=== PATIENT | female | born 1940 | race Caucasian/White ===

== ENCOUNTER 2017-12-24 07:42 | Inpatient (IN) ==
--- NOTE | 2017-12-23 16:06 | Discharge Summary ---
<Emily Troy E - Last Filed: 12/23/17 16:03> Date of Encounter: 12/23/17 - Discharge Diagnosis (1) Osteoarthritis of left knee Priority: Primary Status: Chronic Qualifiers: Osteoarthritis type: unspecified Qualified Code(s): M17.12 - Unilateral primary osteoarthritis, left knee (2) Diabetes mellitus Priority: Secondary Status: Chronic Qualifiers: Diabetes mellitus type: type 2 Diabetes mellitus complication status: without complication Diabetes mellitus superintendent marine oil terminal insulin use: without chcf use Qualified Code(s): E11.9 - Type 2 diabetes mellitus without complications (3) Hypothyroidism Priority: Secondary Status: Chronic Qualifiers: Hypothyroidism type: unspecified Qualified Code(s): E03.9 - Hypothyroidism , unspecified (4) Anxiety Priority: Secondary Status: Chronic (5) Insomnia Priority: Secondary Status: Chronic Qualifiers: Insomnia type: unspecified Qualified Code(s): G47.00 - Insomnia, unspecified (6) HLD (hyperlipidemia) Priority: Secondary Status: Chronic Qualifiers: Hyperlipidemia type: unspecified Qualified Code(s): E78.5 - Hyperlipidemia , unspecified (7) Fibromyalgia Priority: Secondary Status: Chronic - Discharge Medications Home Medications: Diazepam [Valium] 5 mg PO BID PRN 07/13/15 [History] TraMADol [Ultram] 50 mg PO Q6HR PRN 07/13/15 [History] Amitriptyline [Elavil] 25 mg PO HS PRN 03/13/17 [History] Citalopram Hydrobromide [Celexa] 40 mg PO DAILY 03/13/17 [History] Lidocaine Patch [Lidoderm 5% patch] 1 each TP DAILY PRN 03/13/17 [History] Aspirin Enteric Coated [Aspirin EC] 325 mg PO DAILY 21 Days #21 tablet. [Rx] OxyCODONE Immed Rel [Roxicodone 5 MG] 5 mg PO Q6HR PRN 7 Days #28 tablet [Rx] Ropinirole HCl [Requip] 2 mg PO HS 12/24/17 [History] Allergies/Adverse Reactions: 3 Allergy/AdvReac Type Severity Reaction Status Date / Time venom-honey bee Allergy Severe Anaphylaxis Verified 12/24/17 08:50 [bee venom (honey bee)] Tizanidine [From Zanaflex] AdvReac Severe Confusion Verified 12/24/17 08:50 Primary care physician: Darcy Saavedra - Patient Status Disposition: Home, Self-Care Condition: Good - Discharge Instructions Follow Up With: Julio Heath DO [Primary Care Provider] - - Hospital Course Hospital course: Ms. Rivera is a 77 year old female - Time Spent with Patient Total time spent providing and/or coordinating discharge services: <RaulBob - Last Filed: 12/25/17 07:52> Date of Encounter: 12/25/17 Time of Encounter: 07:51 - Discharge Diagnosis (1) Obesity (BMI 30.0-34.9) Priority: Secondary Status: Chronic (2) Status post total left knee replacement Priority: Primary Status: Acute (3) Osteoarthritis of left knee Priority: Primary Status: Chronic Qualifiers: Osteoarthritis type: unspecified Qualified Code(s): M17.12 - Unilateral primary osteoarthritis, left knee (4) Diabetes mellitus Priority: Secondary Status: Chronic Qualifiers: Diabetes mellitus type: type 2 Diabetes mellitus complication status: without complication Diabetes mellitus superintendent marine oil terminal insulin use: without chcf use Qualified Code(s): E11.9 - Type 2 diabetes mellitus without complications (5) Hypothyroidism Priority: Secondary Status: Chronic Qualifiers: Hypothyroidism type: unspecified Qualified Code(s): E03.9 - Hypothyroidism , unspecified (6) Anxiety Priority: Secondary Status: Chronic (7) Insomnia Priority: Secondary Status: Chronic Qualifiers: Insomnia type: unspecified Qualified Code(s): G47.00 - Insomnia, unspecified (8) HLD (hyperlipidemia) Priority: Secondary Status: Chronic Qualifiers: Hyperlipidemia type: unspecified Qualified Code(s): E78.5 - Hyperlipidemia , unspecified (9) Fibromyalgia Priority: Secondary Status: Chronic (10) Acute blood loss anemia Priority: Primary Status: Acute Primary care physician: Darcy Saavedra - Patient Status Functional capacity at discharge: independent ambulation Overall status at discharge: patient is progressing back to baseline - Hospital Course Hospital course: Ms. Rivera is a 77 year old female Status post right total shoulder replacement reverse The patient had an uneventful postoperative course. They received antibiotics and physical therapy and were discharged in stable condition. There will follow -up in the office in 2 weeks. - Time Spent with Patient Total time spent providing and/or coordinating discharge services:
[~2017-12-24 07:42] MED LIST: Povidone-Iodine 5% 60 ML, Sodium Chloride IRRigation 500 ML IR ONE
[2017-12-24] MEDS ORDERED: CeFAZolin Syr 2,000MG/20 ML 2,000 MG/20 ML SYRINGE IVPB ONE (08:13)
[2017-12-24] MEDS ORDERED: Ringers Solution, Lactated 1,000 ML IVC SCH ×2 (08:15→12:25)
--- NOTE | 2017-12-24 08:15 | Anesthesia Evaluation PreOp ---
Date of Encounter: 12/24/17 Time of Encounter: 08:13 - Past History Planned Operation: Left Total Knee Replacement Cardiac History: HTN, Hyperlipidemia Pulmonary History: Denies Any Significant HX PALLET SORTER History: Other (Anxiety) Other Medical History: Diabetes Type II, Thyroid (Hypothyroid), Other ( Fibromyalgia, Obesity) Anesthesia History: No Prior Anesthetic Complications, Past Anesthesia (JOAN-BSO , Tubal, laparoscopy,bladder lift, hammertoe) : No Alcohol Use: none Drug use: none Medications and Allergies Diazepam [Valium] 5 mg PO BID PRN 07/13/15 [History] Ropinirole HCl [Requip] 1 mg PO HS 07/13/15 [History] TraMADol [Ultram] 50 mg PO Q6HR PRN 07/13/15 [History] Amitriptyline [Elavil] 25 mg PO HS PRN 03/13/17 [History] Citalopram Hydrobromide [Celexa] 40 mg PO DAILY 03/13/17 [History] Lidocaine Patch [Lidoderm 5% patch] 1 each TP DAILY PRN 03/13/17 [History] OxyCODONE/APAP 5/325 [Percocet 5/325 MG] 1 each PO Q6HR PRN #28 tablet 03/13/17 [Rx] Promethazine HCl 12.5 mg PO Q4-6H PRN #28 tablet 03/13/17 [Rx] Aspirin Enteric Coated [Aspirin EC] 325 mg PO DAILY 21 Days #21 tablet. [Rx] OxyCODONE Immed Rel [Roxicodone 5 MG] 5 mg PO Q6HR PRN 7 Days #28 tablet [Rx] 3 Allergy/AdvReac Type Severity Reaction Status Date / Time venom-honey bee Allergy Severe Anaphylaxis Verified 07/13/15 10:57 [bee venom (honey bee)] Tizanidine [From Zanaflex] AdvReac Severe Confusion Verified 03/13/17 09:03 - Meds/Allergy Pre-op Review Medications Reviewed: Yes Allergies Reviewed: Yes Beta Blockers on Current Med List: No Anesthesia Results - Labs Laboratory Tests 12/23/17 12/23/17 12/23/17 10:29 10:29 10:29 WBC 8.0 Hgb 12.4 Hct 40.4 Plt Count 473 H INR 1.1 Sodium 143 Potassium 3.9 Chloride 106 Carbon Dioxide 30 H BUN 10 Creatinine 0.70 - Imaging EKG: report reviewed (SR) Anesthesia Exam O2 Sat Height 1.6 m Height 1.6 m Weight 77.564 kg Weight 77.564 kg O2 Sat by Pulse Oximetry 97 Vital Signs Temp Pulse Resp BP Pulse Ox 98.2 F 109 18 110/63 97 12/24/17 08:08 12/24/17 08:08 12/24/17 08:08 12/24/17 08:08 12/24/17 08:08 Height: 5'3'' Weight: 171# NPO (# of Hours): > 8 hrs Pain Scale: 0 Pain Scale Used: Numeric (1 - 10) - HEENT Pupil (Motor): Pupils equal, EOMI Mallampati: II Teeth: Missing Denture Type: Upper: Complete Oral Opening: Greater than 3 - PALLET SORTER LOC: Oriented PALLET SORTER Motor: Normal RUE, Normal LUE, Normal RLE, Normal LLE, Normal Face PALLET SORTER Sensory: Normal: RUE, LUE, RLE, LLE, Face - Cardiac Rhythm: Regular Murmur: None JVD: No Carotid Bruit: No - Pulmonary Breath Sounds: bilateral Clear Respiratory Effort: Symmetrical Anesthesia Assess/Plan ASA Score: 3 Modified Val Scale for Level of Consciousness: Cooperative, oriented, and tranquil Anesthetic Plan: General, Regional (Left Fem. Nerve Block.) Autologous Blood: Yes Monitoring Plan: Standard Monitors Recovery Plan: PACU
[2017-12-24] MEDS ORDERED: Lidocaine -MPF 2% 2 ML VIAL ONE (09:00)
[2017-12-24] MEDS ORDERED: Dexamethasone 4 MG/ML VIAL ONE (09:00)
[2017-12-24] MEDS ORDERED: *HR* Midazolam HCl 2 MG/2 ML VIAL ONE (09:00)
[2017-12-24] MEDS ORDERED: *HR* FentaNYL (PF) 100 MCG/2 ML VIAL ONE (09:00)
[2017-12-24] MEDS ORDERED: Ondansetron 4 MG/2 ML VIAL ONE (09:00)
[2017-12-24] MEDS ORDERED: *HR* Propofol 200 MG/20 ML VIAL IVP ONE (09:01)
--- NOTE | 2017-12-24 09:02 | History & Physical Report ---
Date of Encounter: 12/24/17 Time of Encounter: 09:02 24 Hour HP Update - Instructions Instructions: If the History and Physical is less than 30 days old and was completed prior to A.M. admission and or procedure and has NOT been updated on calendar day of procedure please complete this update prior to performing procedure. - Update Patient reports changes in Medical Condition: No Changes in examination, assessment, or condition: No Changes in Medication: No Preop tests/diagnostics Reviewed: Yes Surgery Remains Indicated: Yes Consent for Planned Operative Procedure(s) Verified: Yes - Pre-Operative Checklist Preoperative Checklist Indicated: No Prophylactic Antibiotic Ordered: Yes Is VTE Prophylaxis Indicated?: Yes
[2017-12-24] MEDS ORDERED: ROPIVACAINE HCL/PF 0.5% 30 ML VIAL ONE (09:40)
[2017-12-24] MEDS ORDERED: Bupivacaine/Clonidine Syringe 1 EACH SYRINGE ONE (09:40)
[2017-12-24] MEDS ORDERED: Ethanol\\Acetic Acid\\Na Ace\\Ben 1,000 ML IRRIG.SOLN IR ONE (09:42)
[2017-12-24] MEDS ORDERED: Acetaminophen IV 1,000 MG/100 ML INFUS..BTL ONE (10:22)
[2017-12-24] MEDS ORDERED: Ondansetron 4 MG/2 ML VIAL IVP ONE (10:29)
--- NOTE | 2017-12-24 10:34 | Anesthesia Procedures ---
Date of Encounter: 12/24/17 Time of Encounter: 09:45 Procedures: Anesthesia - Nerve Block Procedure Date: 12/24/17 Time: 09:45 Allergies/Adv Reactions: Tizanidine Pre-op Diagnosis: Left knee arthritis Surgical Procedure: Left TKA Checklist: Correct Patient Identifier, Correct procedure, History checked Correct side: Left Blood Thinner: No Monitor Applied: EKG, BP, Pulse Oximetry Supplemental Oxygen via Nasal Cannula (L/min): 2 Sedation: Versed (mg): 2 Sedation: Fentanyl (mcg): 100 Indication: Post Op Analgesia Pre-op Neuro Deficits: No Block Type: Femoral, Other (Ipac) Catheter placed: No Sterile Technique: Yes Ultrasound used: Yes Anatomy identified: Yes Visual spread of Local: Yes Neuro Stimulation: No Blood on Needle Aspiration: No Smooth Injection of Local: Yes Pain with Injection of Local: No Prep: Chlorhexadine Needle: 22 x 50 mm Stimuplex, 21 x 100 mm Stimuplex Local: 0.25% Bupivicaine w/Clonidine 20 mcg/cc (20ml), Ropivacaine (0.5% 30ml) Volume (cc): 50 Number of Attempts: 1 Complications: None/effective block Vitals: Vital Signs Temperature 98.2 F 12/24/17 08:08 Pulse Rate 109 12/24/17 08:08 Respiratory Rate 18 12/24/17 08:08 Blood Pressure 110/63 12/24/17 08:08 O2 Sat by Pulse Oximetry 97 12/24/17 08:08 Temperature 98.2 F 12/24/17 08:18 Pulse Rate 104 12/24/17 09:55 Respiratory Rate 18 12/24/17 09:55 Blood Pressure 103/57 12/24/17 09:55 O2 Sat by Pulse Oximetry 98 12/24/17 09:55
--- NOTE | 2017-12-24 10:46 | Orthopedic Operative Note ---
Date of procedure: 12/24/17 Pre-op diagnosis: Left knee arthritis Post-op diagnosis: same Procedure: Procedure: Left Total knee replacement Estimated blood loss: 300 cc Hardware: Metal and polyethylene replacement. Arthrex Femur: 3 Tibia: 4 PS insert:16 Patella:37 Exam Under anesthesia: Loss of full extension and 30 degrees full flexion and no instability Procedural Notes: Grade 4 arthritic changes all 3 compartments Operative procedure: The patient was brought to the operating room and placed on the operating room table. After general anesthesia was administered the operative knee was examined. Findings were noted in the exam under anesthesia. The operative extremity was prepped and draped in sterile surgical fashion. The patient received IV antibiotics prior to skin incision. A standard midline incision was made centered over the patella. The incision was made through the skin and subcutaneous tissue. A medial parapatellar tendon approach was performed. Care was taken to preserve tissue along the medial aspect of the patella. And to protect the patella tendon. The deep MCL was released off the medial tibia. The infra patella fat pad was excised. Knee was brought into flexion. Patient noted to have grade 4 arthritic changes all 3 compartments. The entry hole was made for the intramedullary femoral guide. The guide was seated in 6 degrees of valgus. Anterior cut was made followed by the distal cut. The ACL the PCL the medial and the lateral menisci were excised. The tibia was subluxed forward. The entry hole was made for the intramedullary tibial guide. Guide was seated to resect 2 mm off the more abnormal side. The knee was brought into flexion the distal femur was sized to a 3. The femoral guide was seated, the anterior cut was made followed by the posterior condylar cut, followed by the chamfer cuts. The finishing guide was seated the box cut was made and the lug holes were drilled. The tibia was sized to a 4, the tibial tray was seated and prepared with the large drill followed by the fin cutter. Trial reduction revealed full extension no varus valgus instability with the appropriate PS 16 Lianet. The patella was everted and cut was made at the level of the insertion of the quadriceps and patella tendon. The patella was sized to a 37 the guide was seated and the lug holes are drilled. Trial reduction revealed excellent patella tracking. All trial components were removed all bony surfaces were irrigated. The tibia was cemented first followed by the femur. The 16 PS Lianet was seated and the knee was brought into full extension. The patella was cemented and held in place with the patellar holding clamp. After the cement had hardened, the knee sat for 2 minutes with a Betadine saline solution. The PA closed the knee. The knee was then irrigated out with 2 L of pulse irrigation. The extensor mechanism was closed with #2 FiberWire suture and #2 PDS suture. The subcutaneous tissue was then irrigated and closed deep with #1 PDS suture superficially with 0 PDS suture and skin was closed with skin freddie. The patient was then placed in a sterile dressing and a postoperative brace extubated and transferred to recovery room in stable condition. Anesthesia: GETA Surgeon: Bob Carter Was there an assistant restaurant general manager present: Yes Lye Treater: Emily Troy Estimated blood loss (cc): 300 Condition: stable Disposition: PACU
[2017-12-24] MEDS: Ringers Solution, Lactated 1,000 ML IVC SCH ×2 (10:57→10:59)
[2017-12-24] MEDS: *HR* HYDROmorphone (PF) 1 MG/ML SYRINGE IVP PRN ×2 (11:29→11:34)
[2017-12-24 11:44] LABS: Hematocrit 30.9 % (35.3-44.9)
[2017-12-24 11:45] LABS: Hemoglobin 9.5 g/dL (11.5-15.4)
--- NOTE | 2017-12-24 12:03 | Anesthesia Evaluation Post Op ---
Date of Encounter: 12/24/17 Time of Encounter: 12:03 - Vital Signs Vital Signs: Vital Signs/O2 Sat, Most Current Temp Pulse Resp BP Pulse Ox 98.3 F 87 16 98/55 92 12/24/17 11:51 12/24/17 11:51 12/24/17 11:51 12/24/17 11:51 12/24/17 11:51 - Lungs Lungs: Clear Ascult./Percussion - Airway Airway: Non-obstructed - Cardiovascular Regular Rate - Mental Status Mental Status: Alert & Oriented, Answers Appropriately - Pain Pain Scale: 0 Pain Scale used: Numeric (1 - 10) - Nausea Vomiting Nausea Vomiting: Not Present - Hydration Hydration: Ice chips, Has not voided - Discharge PostOp Status: Transfer Patient to floor
[2017-12-24] MEDS ORDERED: Naloxone 0.4 MG/ML INJ IVP PRN (12:25)
[2017-12-24] MEDS ORDERED: Dextrose Gel 15 GM/37.5 ML TUBE PO PRN ×2 (12:25)
[2017-12-24] MEDS ORDERED: D5% in Water 1,000 ML IVC PRN (12:25)
[2017-12-24] MEDS ORDERED: *HR* OxyCODONE Immed Rel 5 MG TABLET PO PRN (12:25)
[2017-12-24] MEDS ORDERED: diazePAM 5 MG TABLET PO PRN (12:25)
[2017-12-24] MEDS ORDERED: Sennosides 8.6 MG TABLET PO PRN (12:25)
[2017-12-24] MEDS ORDERED: *HR* Dextrose 50 % in Water (Syg) 50 ML SYRINGE IVP PRN (12:25)
[2017-12-24] MEDS ORDERED: Ondansetron 4 MG/2 ML VIAL IVP PRN (12:25)
[2017-12-24] MEDS ORDERED: MOM Conc 10 ML UD.LIQ PO PRN (12:25)
[2017-12-24] MEDS ORDERED: Temazepam 15 MG CAPSULE PO PRN (12:25)
[2017-12-24] MEDS: Insulin LISPRO 300 UNITS/3 ML VIAL SQ SCH ×3 (13:05→20:54)
[2017-12-24] MEDS: *HR* OxyCODONE Immed Rel 5 MG TABLET PO PRN ×3 (13:15→23:09)
[2017-12-24] MEDS: CeFAZolin Premix DUPLEX 2,000 MG/50 ML BAG IVPB SCH (17:28)
[2017-12-24] MEDS: *HR* Enoxaparin 30 MG/0.3 ML SYRINGE SQ SCH (17:29)
[2017-12-24] MEDS ORDERED: *HR* Enoxaparin 30 MG/0.3 ML SYRINGE SQ SCH (18:00)
[2017-12-24] MEDS: rOPINIRole 1 MG TABLET PO SCH (20:49)
[2017-12-25] MEDS: CeFAZolin Premix DUPLEX 2,000 MG/50 ML BAG IVPB SCH (00:49)
[2017-12-25] MEDS: *HR* HYDROmorphone (PF) 1 MG/ML SYRINGE IVP PRN ×3 (04:20→15:51)
[2017-12-25] MEDS: *HR* Enoxaparin 30 MG/0.3 ML SYRINGE SQ SCH ×2 (04:46→17:44)
[2017-12-25] MEDS ORDERED: *HR* HYDROcodone/Acet 5/325 mg TABLET PO PRN (05:53)
[2017-12-25] MEDS: *HR* HYDROcodone/Acet 10/325 mg TABLET PO PRN ×3 (06:10→20:27)
[2017-12-25 06:28] LABS: BUN/Creatinine Ratio 14 (6-26); Blood Urea Nitrogen 9 mg/dL (8-23); Calcium 8.5 mg/dL (8.6-10.3); Carbon Dioxide 32 mEq/L (23-29); Chloride 102 mEq/L (98-107); Glucose 138 mg/dL (70-105); Osmolality,Calculated 291 (280-300); Potassium 4.5 mEq/L (3.5-5.1); Sodium 140 mEq/L (136-145); eGFR For African Americans > 60 (> 60); eGFR For Non-African Americans > 60 (> 60)
[2017-12-25 06:36] LABS: Hematocrit 28.5 % (35.3-44.9); Hemoglobin 8.8 g/dL (11.5-15.4)
--- NOTE | 2017-12-25 07:53 | Orthopedics Progress Note ---
Date of Encounter: 12/25/17 Time of Encounter: 07:53 - Assessment and Plan (1) Obesity (BMI 30.0-34.9) Current Visit: Yes Status: Chronic (2) Status post total left knee replacement Current Visit: Yes Status: Acute (3) Osteoarthritis of left knee Current Visit: No Status: Chronic Qualifiers: Osteoarthritis type: unspecified Qualified Code(s): M17.12 - Unilateral primary osteoarthritis, left knee (4) Diabetes mellitus Current Visit: No Status: Chronic Qualifiers: Diabetes mellitus type: type 2 Diabetes mellitus complication status: without complication Diabetes mellitus intermediate school teacher insulin use: without jail use Qualified Code(s): E11.9 - Type 2 diabetes mellitus without complications (5) Hypothyroidism Current Visit: No Status: Chronic Qualifiers: Hypothyroidism type: unspecified Qualified Code(s): E03.9 - Hypothyroidism , unspecified (6) Anxiety Current Visit: No Status: Chronic (7) Insomnia Current Visit: No Status: Chronic Qualifiers: Insomnia type: unspecified Qualified Code(s): G47.00 - Insomnia, unspecified (8) HLD (hyperlipidemia) Current Visit: No Status: Chronic Qualifiers: Hyperlipidemia type: unspecified Qualified Code(s): E78.5 - Hyperlipidemia , unspecified (9) Fibromyalgia Current Visit: No Status: Chronic (10) Acute blood loss anemia Current Visit: Yes Status: Acute Subjective Interval history: Patient was seen this morning doing well without complaints. Afebrile vital signs stable. Operative extremity: Neurovascularly intact Dressing clean dry and intact Calves nontender Assessment and plan: Continue with postoperative care Hemoglobin 8.8 discharged today Objective Vital signs: Vital Signs Temp Pulse Resp BP Pulse Ox 12/25/17 07:02 100.9 F H 105 17 115/64 96 12/25/17 04:41 98.2 F 89 18 118/63 97 12/24/17 23:25 98.0 F 88 18 113/60 98 12/24/17 20:54 98.1 F 95 17 110/68 98 12/24/17 15:32 98.2 F 96 16 110/67 96 12/24/17 15:24 98.6 F 99 23 111/67 96 12/24/17 14:44 98.6 F 98 20 109/68 95 12/24/17 13:30 98.3 F 98 16 105/65 95 12/24/17 13:00 98.3 F 97 16 112/63 98 12/24/17 12:28 98.2 F 94 20 113/64 100 12/24/17 12:11 97.8 F 91 14 111/58 96 12/24/17 12:01 88 18 113/55 97 12/24/17 11:51 98.3 F 87 16 98/55 92 12/24/17 11:41 87 17 108/80 95 12/24/17 11:31 77 14 113/50 97 12/24/17 11:21 98.3 F 74 12 114/67 100 12/24/17 09:55 104 18 103/57 98 12/24/17 09:43 106 18 123/66 97 12/24/17 08:18 98.2 F 109 18 110/63 97 12/24/17 08:08 98.2 F 109 18 110/63 97 Intake and Output 12/24/17 12/24/17 12/25/17 15:59 23:59 07:59 Intake Total 1000 / 1000 100 / 100 50 / 50 Output Total 200 / 200 450 / 450 300 / 300 Balance 800 / 800 -350 / -350 -250 / -250 Intake: IV Fluids 1000 / 1000 50 / 50 50 / 50 Lactated Ringers 1,000 ML @ 25 1000 / 1000 mls/hr IVC .Q24H MERRITT Rx#: [id number] Ancef Premix DUPLEX 2,000 mg In 50 / 50 50 / 50 50 ml @ 100 mls/hr IVPB Q8H ON LICENSE OF [facility] Rx#:[id number] Oral 0 / 0 50 / 50 Output: Urine 450 / 450 300 / 300 Estimated Blood Loss 200 / 200 Other: Meal Dinner Percent of Meal Consumed 50% Weight 77.564 kg Blood Glucose* 159 174 148 - Labs CBC & BMP: 12/25/17 05:28 12/25/17 05:28 Labs: Abnormal lab results Hgb 8.8 g/dL (11.5-15.4) L 12/25/17 05:28 Hct 28.5 % (35.3-44.9) L 12/25/17 05:28 Carbon Dioxide 32 mEq/L (23-29) H 12/25/17 05:28 Glucose 138 mg/dL (70-105) H 12/25/17 05:28 Calcium 8.5 mg/dL (8.6-10.3) L 12/25/17 05:28 - VTE Documentation of Mechanical Device: Venous foot pump, device Consult Discharge Plan - Plan Referrals: Julio Heath DO [Primary Care Provider] -
[2017-12-25] MEDS: Insulin LISPRO 300 UNITS/3 ML VIAL SQ SCH ×3 (08:17→17:43)
--- NOTE | 2017-12-25 09:27 | Physician Discharge Referral ---
ExtendedCare Referral Info Transfer To: [facility] Provider in Charge: Dr Bob Carter - Diagnosis (1) Osteoarthritis of left knee Priority: Primary Status: Chronic (2) Diabetes mellitus Priority: Secondary Status: Chronic (3) Hypothyroidism Priority: Secondary Status: Chronic (4) Anxiety Priority: Secondary Status: Chronic (5) Insomnia Priority: Secondary Status: Chronic (6) HLD (hyperlipidemia) Priority: Secondary Status: Chronic (7) Fibromyalgia Priority: Secondary Status: Chronic (8) Status post total left knee replacement Priority: Primary Status: Acute Expected Duration of Placement: less than 30 days Prognosis: Good Aware of Diagnosis: Patient Aware of Prognosis: Patient - Transfer Medications Home Medications: Diazepam [Valium] 5 mg PO BID PRN 07/13/15 [History] TraMADol [Ultram] 50 mg PO Q6HR PRN 07/13/15 [History] Amitriptyline [Elavil] 25 mg PO HS PRN 03/13/17 [History] Citalopram Hydrobromide [Celexa] 40 mg PO DAILY 03/13/17 [History] Lidocaine Patch [Lidoderm 5% patch] 1 each TP DAILY PRN 03/13/17 [History] Aspirin Enteric Coated [Aspirin EC] 325 mg PO DAILY 21 Days #21 tablet. [Rx] OxyCODONE Immed Rel [Roxicodone 5 MG] 5 mg PO Q6HR PRN 7 Days #28 tablet [Rx] Ropinirole HCl [Requip] 2 mg PO HS 12/24/17 [History] Allergies/Adverse Reactions: 3 Allergy/AdvReac Type Severity Reaction Status Date / Time venom-honey bee Allergy Severe Anaphylaxis Verified 12/24/17 08:50 [bee venom (honey bee)] Tizanidine [From Zanaflex] AdvReac Severe Confusion Verified 12/24/17 08:50 - Respiratory Orders Smoking Cessation: Smoking cessation has been advised. For more information, call the [place] Tobacco Quit Line at 9-833-WMAM-NOW. - Ancillary Orders May use pressure relief devices daily prn, May go on YUE w/family/respon constitution party w /meds at nurse discretion PRN, May consult with Dentist, Special Technical Operations Officer, Personal Banking Representative PRN - Mobility Orders Chair, Ambulate - Rehabiliation Orders Rehab Potential: Good Rehab Orders: Evaluation for Physical Therapy, Evaluation for Occupational Therapy Other: Total Knee replacement Precautions x 6 weeks Apply cold therapy wrap 3-6x/day for 20 minutes at a time. Encourage ambulation throughout the day and incentive spirometer 10x/hour. Elevate affected extremity above heart as tolerated. Brace: Wear knee immobilizer at night x 2 weeks. - Treatments Skin tear care topically daily PRN per policy List/Other: Opsite placed. Keep dressing intact until first follow up appointment. If > 50% saturated, notify office, remove dressing and place appropriate dressing back in place. Leave Zipline intact. Opsite dressing is water resistant, not water- proof. OK to shower, but do not get dressing wet. - Diet Orders Regular CERTIFICATION: I certify that the transfer of the above named patient to an Extended Care Facility is necessary for the continuing treatment of the diagnosis listed. The above information is true and accurate reflection of patient's current condition. Confidential - Redisclosure prohibited without a patient's written consent.
[2017-12-25] MEDS ORDERED: diazePAM 5 MG TABLET PO PRN (16:10)
--- NOTE | 2017-12-25 17:01 | Event Note ---
Date of Encounter: 12/25/17 Time of Encounter: 12:55 PCR- POD#1 L TKMicaela Carter 12/24/17 PCR - Patient seen at bedside. Pain control: Adequate Not participating in PT. Educated patient re: importance of participation with therapy to determine her needs and when she can be discharged from hospital. All questions and concerns addressed. Educated on use of incentive spirometer, ambulation, and hydration. Patient educated on post-operative restrictions and care. Addressed: PT participation. Patient admits to falling in bathtub on morning of surgery stating she did not notify anyone as she was afraid that her surgery would be cancelled. Patient denies pain from this fall however is c/o thigh pain she states began since surgery. D/C plan: ECF - unable to place successful referral secondary to patient's lack of participation with therapy. Will continue to evaluate and make referral when eval done.
[2017-12-25] MEDS: rOPINIRole 1 MG TABLET PO SCH (20:27)
[2017-12-26] MEDS: Insulin LISPRO 300 UNITS/3 ML VIAL SQ SCH ×5 (00:10→22:37)
[2017-12-26] MEDS: *HR* HYDROcodone/Acet 10/325 mg TABLET PO PRN ×4 (00:23→21:05)
[2017-12-26] MEDS: *HR* HYDROmorphone (PF) 1 MG/ML SYRINGE IVP PRN ×2 (04:03→17:54)
[2017-12-26 04:44] LABS: Hematocrit 26.5 % (35.3-44.9); Hemoglobin 8.2 g/dL (11.5-15.4)
[2017-12-26 04:52] LABS: BUN/Creatinine Ratio 13 (6-26); Blood Urea Nitrogen 7 mg/dL (8-23); Calcium 8.3 mg/dL (8.6-10.3); Carbon Dioxide 31 mEq/L (23-29); Chloride 100 mEq/L (98-107); Glucose 128 mg/dL (70-105); Osmolality,Calculated 282 (280-300); Potassium 3.5 mEq/L (3.5-5.1); Sodium 136 mEq/L (136-145); eGFR For African Americans > 60 (> 60); eGFR For Non-African Americans > 60 (> 60)
[2017-12-26] MEDS: *HR* Enoxaparin 30 MG/0.3 ML SYRINGE SQ SCH ×2 (06:27→16:45)
--- NOTE | 2017-12-26 06:46 | Orthopedics Progress Note ---
Date of Encounter: 12/26/17 Time of Encounter: 06:46 - Assessment and Plan (1) Obesity (BMI 30.0-34.9) Current Visit: Yes Status: Chronic (2) Status post total left knee replacement Current Visit: Yes Status: Acute (3) Osteoarthritis of left knee Current Visit: No Status: Chronic Qualifiers: Osteoarthritis type: unspecified Qualified Code(s): M17.12 - Unilateral primary osteoarthritis, left knee (4) Diabetes mellitus Current Visit: No Status: Chronic Qualifiers: Diabetes mellitus type: type 2 Diabetes mellitus complication status: without complication Diabetes mellitus terminal operator insulin use: without intermediate use Qualified Code(s): E11.9 - Type 2 diabetes mellitus without complications (5) Hypothyroidism Current Visit: No Status: Chronic Qualifiers: Hypothyroidism type: unspecified Qualified Code(s): E03.9 - Hypothyroidism , unspecified (6) Anxiety Current Visit: No Status: Chronic (7) Insomnia Current Visit: No Status: Chronic Qualifiers: Insomnia type: unspecified Qualified Code(s): G47.00 - Insomnia, unspecified (8) HLD (hyperlipidemia) Current Visit: No Status: Chronic Qualifiers: Hyperlipidemia type: unspecified Qualified Code(s): E78.5 - Hyperlipidemia , unspecified (9) Fibromyalgia Current Visit: No Status: Chronic (10) Acute blood loss anemia Current Visit: Yes Status: Acute Subjective Interval history: Patient was seen this morning doing well without complaints. Afebrile vital signs stable. Operative extremity: Neurovascularly intact Dressing clean dry and intact Calves nontender Assessment and plan: Continue with postoperative care Patient complaining of left hip pain we will obtain a CT scan x-ray negative for fracture knee is not hurting the patient. Objective Vital signs: Vital Signs Temp Pulse Resp BP Pulse Ox 12/26/17 00:20 98.9 F 114 15 127/67 92 12/25/17 17:08 98.2 F 102 16 107/53 92 12/25/17 11:10 98.9 F 101 15 116/67 92 12/25/17 08:35 96 12/25/17 07:02 100.9 F H 105 17 115/64 96 Intake and Output 12/25/17 12/25/17 12/26/17 15:59 23:59 07:59 Output Total 400 / 400 Balance -400 / -400 Output: Urine 400 / 400 Other: Blood Glucose* 166 188 - Labs CBC & BMP: 12/26/17 04:00 12/26/17 04:00 Labs: Abnormal lab results Hgb 8.2 g/dL (11.5-15.4) L 12/26/17 04:00 Hct 26.5 % (35.3-44.9) L 12/26/17 04:00 Carbon Dioxide 31 mEq/L (23-29) H 12/26/17 04:00 BUN 7 mg/dL (8-23) L 12/26/17 04:00 Creatinine 0.55 mg/dL (0.60-1.20) L 12/26/17 04:00 Glucose 128 mg/dL (70-105) H 12/26/17 04:00 POC Glucose 206 (58-89) H 12/25/17 19:59 Calcium 8.3 mg/dL (8.6-10.3) L 12/26/17 04:00 - VTE Documentation of Mechanical Device: Venous foot pump, device Consult Discharge Plan - Plan Referrals: Julio Heath DO [Primary Care Provider] -
--- NOTE | 2017-12-26 13:07 | Event Note ---
Date of Encounter: 12/26/17 Time of Encounter: 12:15 PCR- POD#2 L TKR Raul 12/24/17 PCR - Patient seen at bedside. Pain control: Adequate She is now participating in therapy, patient states it is going ok All questions and concerns addressed. Educated on use of incentive spirometer, ambulation, and hydration. Patient educated on post-operative restrictions and care. Addressed: PT participation. Patient admits to falling in bathtub on morning of surgery stating she did not notify anyone as she was afraid that her surgery would be cancelled. Patient denies pain from this fall however is c/o thigh pain she states began since surgery. Xrays and CT show no acute abnormalities. Awaiting doppler. D/C plan: ECF , authorization delayed due to patient initially not participating in therapy. PT/OT did eval yesterday afternoon. Patient will likely be here another 3 days
[2017-12-26] MEDS: rOPINIRole 1 MG TABLET PO SCH (21:05)
[2017-12-27] MEDS: *HR* HYDROcodone/Acet 10/325 mg TABLET PO PRN ×4 (05:06→20:46)
[2017-12-27] MEDS: *HR* Enoxaparin 30 MG/0.3 ML SYRINGE SQ SCH ×2 (07:34→16:33)
[2017-12-27] MEDS: Insulin LISPRO 300 UNITS/3 ML VIAL SQ SCH ×4 (07:57→20:47)
[2017-12-27 08:10] LABS: Hematocrit 25.2 % (35.3-44.9); Hemoglobin 7.8 g/dL (11.5-15.4)
[2017-12-27] MEDS: *HR* HYDROmorphone (PF) 1 MG/ML SYRINGE IVP PRN (10:44)
--- NOTE | 2017-12-27 13:33 | Orthopedics Progress Note ---
Date of Encounter: 12/27/17 Time of Encounter: 13:32 Subjective Interval history: Patient was seen this morning doing well without complaints. Afebrile vital signs stable. Operative extremity: Neurovascularly intact Dressing clean dry and intact Calves nontender Assessment and plan: Continue with postoperative care; Will tansfuse 1 unit for acute blood loss anemia and slight tachycardia. Objective Vital signs: Vital Signs Temp Pulse Resp BP Pulse Ox 12/27/17 11:00 99.1 F 102 16 103/54 90 12/27/17 06:34 99.8 F H 105 14 98/64 92 12/27/17 00:31 98.8 F 101 17 97/59 91 12/26/17 20:23 99.3 F 106 17 129/76 92 12/26/17 16:31 99.5 F 109 16 134/73 92 Intake and Output 12/26/17 12/27/17 12/27/17 23:59 07:59 15:59 Intake Total 400 / 400 Output Total 650 / 650 Balance -250 / -250 Intake: Oral 400 / 400 Output: Urine 650 / 650 Other: Blood Glucose* 165 133 131 - Labs CBC & BMP: 12/27/17 07:59 12/26/17 04:00 Labs: Abnormal lab results Hgb 7.8 g/dL (11.5-15.4) L 12/27/17 07:59 Hct 25.2 % (35.3-44.9) L 12/27/17 07:59 Carbon Dioxide 31 mEq/L (23-29) H 12/26/17 04:00 BUN 7 mg/dL (8-23) L 12/26/17 04:00 Creatinine 0.55 mg/dL (0.60-1.20) L 12/26/17 04:00 Glucose 128 mg/dL (70-105) H 12/26/17 04:00 POC Glucose 165 (58-89) H 12/26/17 21:29 Calcium 8.3 mg/dL (8.6-10.3) L 12/26/17 04:00 - VTE Documentation of Mechanical Device: Venous foot pump, device Consult Discharge Plan - Plan Referrals: Julio Heath DO [Primary Care Provider] -
[2017-12-27] MEDS ORDERED: 0.9 % Sodium Chloride 250 ML ONE (17:50)
[2017-12-27] MEDS: rOPINIRole 1 MG TABLET PO SCH (20:46)
[2017-12-28] MEDS: *HR* HYDROcodone/Acet 10/325 mg TABLET PO PRN ×4 (03:52→16:18)
[2017-12-28] MEDS: *HR* Enoxaparin 30 MG/0.3 ML SYRINGE SQ SCH ×2 (05:33→17:11)
[2017-12-28] MEDS: Insulin LISPRO 300 UNITS/3 ML VIAL SQ SCH ×4 (07:52→20:43)
[2017-12-28 07:58] LABS: Hematocrit 27.3 % (35.3-44.9); Hemoglobin 8.6 g/dL (11.5-15.4)
--- NOTE | 2017-12-28 12:08 | Orthopedics Progress Note ---
Date of Encounter: 12/28/17 Time of Encounter: 12:07 Subjective Interval history: Patient was seen this morning doing well without complaints. Afebrile vital signs stable. Operative extremity: Neurovascularly intact Dressing clean dry and intact Calves nontender Assessment and plan: Continue with postoperative care Objective Vital signs: Vital Signs Temp Pulse Resp BP Pulse Ox 12/28/17 07:28 99.7 F H 96 14 108/66 91 12/28/17 05:58 98.7 F 92 17 109/55 92 12/28/17 03:44 99.8 F H 92 15 100/53 93 12/27/17 21:11 99.4 F 100 16 120/66 12/27/17 18:18 98.8 F 102 14 105/62 90 12/27/17 18:03 98.3 F 107 15 103/64 93 12/27/17 15:42 98.5 F 94 16 107/68 93 Intake and Output 12/27/17 12/28/17 12/28/17 23:59 07:59 15:59 Intake Total 300 / 300 Balance 300 / 300 Intake: Blood Product 300 / 300 Rbcs Leuko Poor As-1 Unit 300 / 300 [id number] Other: # Voids 1 1 Blood Glucose* 124 98 - Labs CBC & BMP: 12/28/17 07:29 12/26/17 04:00 Labs: Abnormal lab results Hgb 8.6 g/dL (11.5-15.4) L 12/28/17 07:29 Hct 27.3 % (35.3-44.9) L 12/28/17 07:29 Carbon Dioxide 31 mEq/L (23-29) H 12/26/17 04:00 BUN 7 mg/dL (8-23) L 12/26/17 04:00 Creatinine 0.55 mg/dL (0.60-1.20) L 12/26/17 04:00 Glucose 128 mg/dL (70-105) H 12/26/17 04:00 POC Glucose 98 (58-89) H 12/28/17 07:28 Calcium 8.3 mg/dL (8.6-10.3) L 12/26/17 04:00 - VTE Documentation of Mechanical Device: Venous foot pump, device Consult Discharge Plan - Plan Referrals: Julio Heath DO [Primary Care Provider] -
[2017-12-28] MEDS: *HR* HYDROmorphone (PF) 1 MG/ML SYRINGE IVP PRN (20:43)
[2017-12-28] MEDS: rOPINIRole 1 MG TABLET PO SCH (20:43)
[2017-12-29] MEDS: *HR* HYDROcodone/Acet 10/325 mg TABLET PO PRN ×2 (04:48→11:15)
[2017-12-29] MEDS: *HR* Enoxaparin 30 MG/0.3 ML SYRINGE SQ SCH (05:42)
--- NOTE | 2017-12-29 06:55 | Orthopedics Progress Note ---
Date of Encounter: 12/29/17 Time of Encounter: 06:54 - Assessment and Plan (1) Obesity (BMI 30.0-34.9) Current Visit: Yes Status: Chronic (2) Status post total left knee replacement Current Visit: Yes Status: Acute (3) Osteoarthritis of left knee Current Visit: No Status: Chronic Qualifiers: Osteoarthritis type: unspecified Qualified Code(s): M17.12 - Unilateral primary osteoarthritis, left knee (4) Diabetes mellitus Current Visit: No Status: Chronic Qualifiers: Diabetes mellitus type: type 2 Diabetes mellitus complication status: without complication Diabetes mellitus termite renewal inspector insulin use: without assisted use Qualified Code(s): E11.9 - Type 2 diabetes mellitus without complications (5) Hypothyroidism Current Visit: No Status: Chronic Qualifiers: Hypothyroidism type: unspecified Qualified Code(s): E03.9 - Hypothyroidism , unspecified (6) Anxiety Current Visit: No Status: Chronic (7) Insomnia Current Visit: No Status: Chronic Qualifiers: Insomnia type: unspecified Qualified Code(s): G47.00 - Insomnia, unspecified (8) HLD (hyperlipidemia) Current Visit: No Status: Chronic Qualifiers: Hyperlipidemia type: unspecified Qualified Code(s): E78.5 - Hyperlipidemia , unspecified (9) Fibromyalgia Current Visit: No Status: Chronic (10) Acute blood loss anemia Current Visit: Yes Status: Acute Subjective Interval history: Patient was seen this morning doing well without complaints. Afebrile vital signs stable. Operative extremity: Neurovascularly intact Dressing clean dry and intact Calves nontender Assessment and plan: Continue with postoperative care CT scan left hip negative discharge held secondary placement, discharged today Objective Vital signs: Vital Signs Temp Pulse Resp BP Pulse Ox 12/29/17 06:40 98.7 F 90 16 107/63 92 12/29/17 03:36 99.5 F 91 16 110/69 92 12/28/17 20:13 98.7 F 86 16 101/59 94 12/28/17 16:40 98.3 F 87 15 124/72 93 12/28/17 12:03 98.7 F 89 14 102/62 94 12/28/17 07:28 99.7 F H 96 14 108/66 91 Intake and Output 12/28/17 12/28/17 12/29/17 15:59 23:59 07:59 Intake Total 120 / 120 540 / 540 Output Total 200 / 200 Balance 120 / 120 340 / 340 Intake: Oral 120 / 120 540 / 540 Output: Urine 200 / 200 Other: Meal Lunch Dinner Percent of Meal Consumed 95% 95% # Voids 1 1 Weight 74.3 kg Blood Glucose* 109 141 118 Patient Weight 12/29/17 23:59 Weight 74.3 kg - Labs CBC & BMP: 12/28/17 07:29 12/26/17 04:00 Labs: Abnormal lab results Hgb 8.6 g/dL (11.5-15.4) L 12/28/17 07:29 Hct 27.3 % (35.3-44.9) L 12/28/17 07:29 Carbon Dioxide 31 mEq/L (23-29) H 12/26/17 04:00 BUN 7 mg/dL (8-23) L 12/26/17 04:00 Creatinine 0.55 mg/dL (0.60-1.20) L 12/26/17 04:00 Glucose 128 mg/dL (70-105) H 12/26/17 04:00 POC Glucose 141 (58-89) H 12/28/17 20:16 Calcium 8.3 mg/dL (8.6-10.3) L 12/26/17 04:00 - VTE Documentation of Mechanical Device: Venous foot pump, device Consult Discharge Plan - Plan Referrals: Julio Heath DO [Primary Care Provider] -
[2017-12-29] MEDS: Insulin LISPRO 300 UNITS/3 ML VIAL SQ SCH (07:45)
[2017-12-29 11:47] VITALS: BP 115/72
== END 2017-12-29 14:46 | disposition home or self-care (01) | DRG 470 ==
LOC: SAMDAY 07:42 → 3NENU 12:53
PROVIDERS: ADMIT Orthopaedic Surgery; ATTEND Orthopaedic Surgery

== ENCOUNTER 2021-05-14 15:26 | Observation (INO) ==
[2021-05-14 17:05] LABS: Basophils # 0.1 K/mcL (0.0-0.2); Basophils % 0.5 %; Eosinophils # 0.2 K/mcL (0.0-0.6); Eosinophils % 1.6 %; Hematocrit 35.4 % (35.3-44.9); Hemoglobin 10.8 g/dL (11.5-15.4); Immature Granulocytes % 0.9 % (0-4); Lymphocytes # 2.1 K/mcL (0.6-4.6); Lymphocytes % 20.7 %; Mean Corpuscular HGB Conc 30.5 g/dL (31.6-35.5); Mean Corpuscular Hemoglobin 30.2 pg (28.0-33.3); Mean Corpuscular Volume 98.9 fL (83.0-100.0); Mean Platelet Volume 9.1 fL (9.4-12.4); Monocytes # 0.4 K/mcL (0.0-1.3); Monocytes % 3.5 %; Neutrophils # 7.4 K/mcL (1.6-8.9); Platelet Count 552 K/mcL (140-400); Red Blood Count 3.58 M/mcL (3.82-4.97); Red Cell Distribution Width 16.7 % (11.5-14.5); Segmented Neutrophils % 72.8 %; White Blood Count 10.2 K/mcL (4.3-11.1)
[2021-05-14] MEDS ORDERED: Orphenadrine 60 MG/2 ML VIAL IM ONE (17:07)
[2021-05-14 17:27] LABS: BUN/Creatinine Ratio 8 (6-26); Blood Urea Nitrogen 6 mg/dL (8-23); Calcium 9.4 mg/dL (8.6-10.3); Carbon Dioxide 29 mEq/L (23-29); Chloride 102 mEq/L (98-107); Glucose 116 mg/dL (70-105); Osmolality,Calculated 287 (280-300); Potassium 3.9 mEq/L (3.5-5.1); Sodium 139 mEq/L (136-145); eGFR For African Americans > 60 (> 60); eGFR For Non-African Americans > 60 (> 60)
[2021-05-14 17:36] LABS: Troponin I 0.07 ng/mL (< 0.04)
[2021-05-14] MEDS ORDERED: *HR* FentaNYL (PF) 100 MCG/2 ML VIAL IVP ONE (18:34)
[2021-05-14] MEDS ORDERED: Aspirin 325 MG TABLET PO ONE (21:36)
[2021-05-14] MEDS ORDERED: Perflutren Lipid Microsphere 1.3 ML in 0.9 % Sodium Chloride 8.7 ML IVP PRN (22:38)
[2021-05-14] MEDS ORDERED: Nitroglycerin 0.4 MG TAB.SUBL SL PRN (22:39)
[2021-05-14] MEDS ORDERED: D5% in Water 1,000 ML IVC PRN (23:04)
[2021-05-14] MEDS ORDERED: Dextrose Gel 15 GM/37.5 ML TUBE PO PRN ×2 (23:04)
[2021-05-14] MEDS ORDERED: *HR* Dextrose 50 % in Water (Vial) 50 ML VIAL IVP PRN (23:04)
[2021-05-15] MEDS: *HR* HYDROcodone/Acet 5/325 mg TABLET PO PRN ×3 (00:11→20:13)
[2021-05-15 02:29] LABS: Chol/HDL Ratio 4.3 (0-4.9)
[2021-05-15] MEDS: Insulin LISPRO 300 UNITS/3 ML VIAL SUBQ SCH ×5 (02:41→20:42)
[2021-05-15 05:12] LABS: Alanine Aminotransferase 10 Units/L (7-52); Albumin 3.6 g/dL (3.5-5.7); Albumin/Globulin Ratio 1.4 (1.1-2.2); Alkaline Phosphatase 78 Units/L (34-104); Aspartate Amino Transferase 15 Units/L (13-39); BUN/Creatinine Ratio 13 (6-26); Bilirubin,Total 0.3 mg/dL (0.3-1.0); Blood Urea Nitrogen 11 mg/dL (8-23); Calcium 8.9 mg/dL (8.6-10.3); Carbon Dioxide 29 mEq/L (23-29); Chloride 105 mEq/L (98-107); Globulin 2.5 g/dL (2.4-3.5); Glucose 103 mg/dL (70-105); Magnesium 1.7 mg/dL (1.6-2.6); Osmolality,Calculated 292 (280-300); Potassium 4.4 mEq/L (3.5-5.1); Sodium 141 mEq/L (136-145); Total Protein 6.1 g/dL (6.4-8.9); eGFR For African Americans > 60 (> 60); eGFR For Non-African Americans > 60 (> 60)
[2021-05-15 05:28] LABS: INR 1.1; Prothrombin Time 12.2 Seconds (9.4-12.1)
[2021-05-15 05:38] LABS: Estimated Average Glucose 126 mg/dl
[2021-05-15] MEDS ORDERED: Aspirin 81 MG TAB.CHEW PO SCH (09:00)
[2021-05-15 12:43] LABS: Adenovirus Not Detected (Not Detect); Bordetella Pertussis Not Detected (Not Detect); Chlamydophila pneumoniae Not Detected (Not Detect); Coronavirus 229E Not Detected (Not Detect); Coronavirus HKU1 Not Detected (Not Detect); Coronavirus NL63 Not Detected (Not Detect); Coronavirus OC43 Not Detected (Not Detect); Human Metapneumovirus Not Detected (Not Detect); Human Rhinovirus/Enterovirus Not Detected (Not Detect); Influenza A Subtype 2009 H1 Not Detected (Not Detect); Influenza B Not Detected (Not Detect); Mycoplasma pneumoniae Not Detected (Not Detect); Parainfluenza Virus 1 Not Detected (Not Detect); Parainfluenza Virus 2 Not Detected (Not Detect); Parainfluenza Virus 3 Not Detected (Not Detect); Parainfluenza Virus 4 Not Detected (Not Detect); Respiratory Syncytial Virus Not Detected (Not Detect); SARS-CoV-2 Not Detected (Not Detect)
[2021-05-15] MEDS ORDERED: *HR* Heparin 5,000 UNIT/ML VIAL IVP PRN ×4 (14:10→16:39)
[2021-05-15] MEDS ORDERED: *HR* Heparin 5,000 UNIT/ML VIAL IVP ONE (14:10)
[2021-05-15] MEDS ORDERED: Heparin 25,000UNIT/250ML 1/2NS 25,000 UNIT/250 ML IV.SOLN IVC SCH ×2 (14:15→16:45)
[2021-05-15 14:55] LABS: Hemoglobin 11.4 g/dL (11.5-15.4); Mean Corpuscular Hemoglobin 30.1 pg (28.0-33.3); Mean Corpuscular Volume 100.3 fL (83.0-100.0); Mean Platelet Volume 9.1 fL (9.4-12.4); Platelet Count 528 K/mcL (140-400); Red Blood Count 3.79 M/mcL (3.82-4.97); White Blood Count 8.3 K/mcL (4.3-11.1)
[2021-05-15 15:05] LABS: Heparin anti-factor XA UFH < 0.04 IU/mL (0.30-0.70); INR 1.1
[2021-05-15] MEDS ORDERED: Isovue-370 500 ML BOTTLE IVP ONE (15:10)
[2021-05-15 18:15] LABS: Hematocrit 34.9 % (35.3-44.9); Hemoglobin 10.7 g/dL (11.5-15.4); Mean Corpuscular HGB Conc 30.7 g/dL (31.6-35.5); Mean Corpuscular Hemoglobin 30.7 pg (28.0-33.3); Mean Corpuscular Volume 100.3 fL (83.0-100.0); Mean Platelet Volume 9.3 fL (9.4-12.4); Platelet Count 545 K/mcL (140-400); Red Blood Count 3.48 M/mcL (3.82-4.97); Red Cell Distribution Width 16.7 % (11.5-14.5)
[2021-05-15 18:21] LABS: Heparin anti-factor XA UFH 0.98 IU/mL (0.30-0.70)
[2021-05-15 18:22] LABS: INR 1.2; Prothrombin Time 13.9 Seconds (9.4-12.1)
[2021-05-15] MEDS: diazePAM 5 MG TABLET PO PRN (20:43)
[2021-05-15] MEDS: Venlafaxine XR (24 HR) 150 MG CAP.ER.24H PO SCH (23:19)
[2021-05-16 03:55] LABS: Hematocrit 33.2 % (35.3-44.9); Hemoglobin 10.3 g/dL (11.5-15.4); Mean Corpuscular Hemoglobin 30.7 pg (28.0-33.3); Mean Corpuscular Volume 98.8 fL (83.0-100.0); Platelet Count 470 K/mcL (140-400); Red Blood Count 3.36 M/mcL (3.82-4.97); Red Cell Distribution Width 16.8 % (11.5-14.5); White Blood Count 6.9 K/mcL (4.3-11.1)
[2021-05-16 04:13] LABS: BUN/Creatinine Ratio 21 (6-26); Blood Urea Nitrogen 16 mg/dL (8-23); Calcium 8.4 mg/dL (8.6-10.3); Carbon Dioxide 28 mEq/L (23-29); Chloride 106 mEq/L (98-107); Glucose 114 mg/dL (70-105); Osmolality,Calculated 292 (280-300); Potassium 3.7 mEq/L (3.5-5.1); Sodium 140 mEq/L (136-145); eGFR For African Americans > 60 (> 60); eGFR For Non-African Americans > 60 (> 60)
[2021-05-16] MEDS: Insulin LISPRO 300 UNITS/3 ML VIAL SUBQ SCH ×4 (08:17→20:58)
[2021-05-16] MEDS: *HR* HYDROcodone/Acet 5/325 mg TABLET PO PRN (08:17)
[2021-05-16] MEDS: Aspirin Enteric Coated 81 MG Tablet PO SCH (08:18)
[2021-05-16] MEDS: diazePAM 5 MG TABLET PO PRN (08:24)
[2021-05-16] MEDS: 0.9 % Sodium Chloride 1,000 ML IVC SCH ×2 (10:48→23:13)
[2021-05-16] MEDS ORDERED: *HR* HYDROcodone/Acet 5/325 mg TABLET PO PRN (11:27)
[2021-05-16] MEDS: *HR* OxyCODONE/APAP 5/325 TABLET PO PRN ×2 (14:08→23:21)
[2021-05-16] MEDS ORDERED: ISOVUE-370 200 ML INFUS..BTL ONE ×2 (15:05→15:37)
[2021-05-16] MEDS ORDERED: *HR* Heparin 10,000 UNIT/10 ML VIAL ONE (15:05)
[2021-05-16] MEDS ORDERED: 0.9 % Sodium Chloride 1,000 ML ONE (15:05)
[2021-05-16] MEDS ORDERED: Nitroglycerin 1,000 MCG/5 ML VIAL IV ONE (15:05)
[2021-05-16] MEDS ORDERED: Heparin 1,000 UNITS/500 mL 500 ML ONE (15:05)
[2021-05-16] MEDS ORDERED: Tirofiban 12.5 MG/250ML 12.5 MG/250 ML BAG ONE (15:32)
[2021-05-16] MEDS ORDERED: Tirofiban 12.5 MG/250ML 12.5 MG/250 ML BAG IVC SCH (16:00)
[2021-05-16] MEDS ORDERED: *HR* LORazepam 0.5 MG TABLET PO SCH (21:00)
[2021-05-16] MEDS: Venlafaxine XR (24 HR) 150 MG CAP.ER.24H PO SCH (23:14)
[2021-05-17 01:20] LABS: Basophils # 0.1 K/mcL (0.0-0.2); Basophils % 0.7 %; Eosinophils # 0.2 K/mcL (0.0-0.6); Eosinophils % 2.1 %; Hematocrit 32.8 % (35.3-44.9); Hemoglobin 10.1 g/dL (11.5-15.4); Immature Granulocytes % 0.8 % (0-4); Lymphocytes # 1.5 K/mcL (0.6-4.6); Lymphocytes % 17.6 %; Mean Corpuscular HGB Conc 30.8 g/dL (31.6-35.5); Mean Corpuscular Volume 100.6 fL (83.0-100.0); Mean Platelet Volume 9.2 fL (9.4-12.4); Monocytes # 0.5 K/mcL (0.0-1.3); Monocytes % 5.7 %; Platelet Count 504 K/mcL (140-400); Red Blood Count 3.26 M/mcL (3.82-4.97); Red Cell Distribution Width 16.8 % (11.5-14.5); Segmented Neutrophils % 73.1 %; White Blood Count 8.3 K/mcL (4.3-11.1)
[2021-05-17 01:41] LABS: BUN/Creatinine Ratio 15 (6-26); Blood Urea Nitrogen 11 mg/dL (8-23); Calcium 8.2 mg/dL (8.6-10.3); Carbon Dioxide 22 mEq/L (23-29); Chloride 109 mEq/L (98-107); Glucose 95 mg/dL (70-105); Osmolality,Calculated 287 (280-300); Potassium 4.1 mEq/L (3.5-5.1); Sodium 139 mEq/L (136-145); eGFR For African Americans > 60 (> 60); eGFR For Non-African Americans > 60 (> 60)
[2021-05-17] MEDS: Aspirin Enteric Coated 81 MG Tablet PO SCH (08:12)
[2021-05-17] MEDS: Insulin LISPRO 300 UNITS/3 ML VIAL SUBQ SCH ×3 (08:13→16:29)
[2021-05-17] MEDS: *HR* OxyCODONE/APAP 5/325 TABLET PO PRN ×2 (09:53→15:57)
[2021-05-17] MEDS ORDERED: Metoprolol XL (24 HR) Succ 25 MG TAB.ER.24H PO SCH (11:30)
[2021-05-17 16:19] VITALS: BP 106/71
== END 2021-05-17 17:50 | disposition home or self-care (01) ==
LOC: EMEROOARM 15:26 → 3ANU 15:26 → SUATTDRO 22:11 → 3ANU 23:20 → 2NNU 05-16 16:21
PROVIDERS: ADMIT Internal Medicine; ATTEND Student in an Organized Health Care Education/Training Program

== ENCOUNTER 2021-06-01 12:46 | Inpatient (IN) ==
[2021-06-01] MEDS ORDERED: 0.9 % Sodium Chloride 500 ML IVC ONE (13:29)
[2021-06-01] MEDS ORDERED: Isovue-370 500 ML BOTTLE IVP ONE (13:32)
[2021-06-01 13:54] LABS: Basophils # 0.1 K/mcL (0.0-0.2); Basophils % 0.6 %; Eosinophils # 0.8 K/mcL (0.0-0.6); Eosinophils % 7.1 %; Hematocrit 28.3 % (35.3-44.9); Hemoglobin 8.4 g/dL (11.5-15.4); Immature Granulocytes % 0.7 % (0-4); Lymphocytes # 2.4 K/mcL (0.6-4.6); Lymphocytes % 22.4 %; Mean Corpuscular HGB Conc 29.7 g/dL (31.6-35.5); Mean Corpuscular Hemoglobin 30.2 pg (28.0-33.3); Mean Corpuscular Volume 101.8 fL (83.0-100.0); Mean Platelet Volume 9.6 fL (9.4-12.4); Monocytes # 0.7 K/mcL (0.0-1.3); Monocytes % 6.2 %; Neutrophils # 6.8 K/mcL (1.6-8.9); Platelet Count 511 K/mcL (140-400); Red Blood Count 2.78 M/mcL (3.82-4.97); Red Cell Distribution Width 17.6 % (11.5-14.5); White Blood Count 10.7 K/mcL (4.3-11.1)
[2021-06-01 14:15] LABS: Bilirubin,Urine Negative (Negative); Blood,Urine Trace (Negative); Clarity,Urine Clear (Clear); Color,Urine Yellow (Yellow); Glucose,Urine (UA) Normal (Normal); Hyaline Casts,Urine Few per lpf (None Seen); Ketones,Urine Negative (Negative); Leukocyte Esterase,Urine Small (Negative); Mucus,Urine Few per lpf (None-Few); Nitrite,Urine Negative (Negative); PH,Urine 5.5 pH Units (5.0-8.0); Protein,Urine Trace mg/dL (Neg-Trace); Renal Epithelial Cells,Urine Few per hpf (None-Few); Specific Gravity,Urine 1.026 (1.010-1.025); Squamous Epithelial Cell,Urine Few per hpf (None-Few); Transitional Epi Cells,Urine Few per hpf (None-Few); Urobilinogen,Urine Normal (Normal)
[2021-06-01 14:30] LABS: BUN/Creatinine Ratio 14 (6-26); Blood Urea Nitrogen 11 mg/dL (8-23); Calcium 9.2 mg/dL (8.6-10.3); Carbon Dioxide 27 mEq/L (23-29); Chloride 102 mEq/L (98-107); Glucose 99 mg/dL (70-105); Osmolality,Calculated 295 (280-300); Potassium 3.4 mEq/L (3.5-5.1); Sodium 143 mEq/L (136-145); eGFR For African Americans > 60 (> 60); eGFR For Non-African Americans > 60 (> 60)
[2021-06-01] MEDS ORDERED: Pantoprazole 80 MG in 0.9 % Sodium Chloride 50 ML IVPB ONE (15:48)
[2021-06-01] MEDS ORDERED: Pantoprazole 40 MG in 0.9 % Sodium Chloride Mini Bag 100 ML IVC SCH (16:30)
[2021-06-01 16:44] LABS: INR 1.9; Prothrombin Time 21.2 Seconds (9.4-12.1)
[2021-06-01 16:47] LABS: Activated Partial Thrombo Time 31.3 Seconds (26.0-36.0)
[2021-06-01] MEDS ORDERED: *HR* HYDROcodone/Acet 5/325 mg TABLET PO PRN (17:31)
[2021-06-01] MEDS ORDERED: Nitroglycerin 0.4 MG TAB.SUBL SL PRN (17:31)
[2021-06-01] MEDS ORDERED: Naloxone 0.4 MG/ML INJ IVP PRN (17:33)
[2021-06-01] MEDS ORDERED: Ondansetron 4 MG/2 ML VIAL IVP PRN (17:33)
[2021-06-01] MEDS ORDERED: *HR* Heparin 5,000 UNIT/ML VIAL IVP PRN ×2 (18:12)
[2021-06-01] MEDS ORDERED: *HR* Heparin 5,000 UNIT/ML VIAL IVP ONE (18:12)
[2021-06-01] MEDS ORDERED: Acetaminophen 325 MG TABLET PO PRN (18:13)
[2021-06-01] MEDS ORDERED: *HR* OxyCODONE Oral Soln 5 MG/5 ML UD.LIQ PO PRN (18:13)
[2021-06-01] MEDS ORDERED: *HR* LORazepam 2 MG/ML VIAL IVP ONE (18:13)
[2021-06-01] MEDS ORDERED: Heparin 25,000UNIT/250ML 1/2NS 25,000 UNIT/250 ML IV.SOLN IVC SCH (18:15)
[2021-06-01] MEDS ORDERED: D5% in Water 1,000 ML IVC PRN (18:21)
[2021-06-01] MEDS ORDERED: *HR* Dextrose 50 % in Water (Vial) 50 ML VIAL IVP PRN (18:21)
[2021-06-01] MEDS ORDERED: Dextrose Gel 15 GM/37.5 ML TUBE PO PRN ×2 (18:21)
[2021-06-01 19:30] LABS: Hematocrit 30.9 % (35.3-44.9); Hemoglobin 9.2 g/dL (11.5-15.4)
[2021-06-01] MEDS: Pregabalin 50 MG CAPSULE PO SCH (20:35)
[2021-06-01] MEDS: diazePAM 5 MG TABLET PO SCH (20:35)
[2021-06-01] MEDS: *HR* OxyCODONE Oral Soln 5 MG/5 ML UD.LIQ PO PRN (22:47)
[2021-06-01] MEDS: Insulin LISPRO 300 UNITS/3 ML VIAL SUBQ SCH (23:20)
[2021-06-02] MEDS ORDERED: Insulin LISPRO 300 UNITS/3 ML VIAL SUBQ SCH
[2021-06-02] MEDS: Pantoprazole 40 MG VIAL IVP SCH ×2 (05:27→17:55)
[2021-06-02] MEDS: Insulin LISPRO 300 UNITS/3 ML VIAL SUBQ SCH ×4 (08:27→20:34)
[2021-06-02] MEDS: Aspirin Enteric Coated 81 MG Tablet PO SCH (08:34)
[2021-06-02] MEDS: Magnesium Oxide 400 MG TABLET PO SCH (08:34)
[2021-06-02] MEDS: diazePAM 5 MG TABLET PO SCH ×2 (08:35→22:37)
[2021-06-02] MEDS: Pregabalin 50 MG CAPSULE PO SCH ×2 (08:35→22:37)
[2021-06-02] MEDS: Venlafaxine XR (24 HR) 150 MG CAP.ER.24H PO SCH (08:35)
[2021-06-02] MEDS: Cholecalciferol (D-3) 1,000 UNIT (25MCG) TABLET PO SCH (08:35)
[2021-06-02] MEDS: Folic Acid 1 MG TABLET PO SCH (08:35)
[2021-06-02 09:22] LABS: Basophils # 0.1 K/mcL (0.0-0.2); Basophils % 0.6 %; Eosinophils # 0.8 K/mcL (0.0-0.6); Eosinophils % 8.7 %; Hematocrit 30.1 % (35.3-44.9); Hemoglobin 9.3 g/dL (11.5-15.4); Immature Granulocytes % 0.5 % (0-4); Lymphocytes # 2.2 K/mcL (0.6-4.6); Lymphocytes % 24.8 %; Mean Corpuscular HGB Conc 30.9 g/dL (31.6-35.5); Mean Corpuscular Hemoglobin 31.3 pg (28.0-33.3); Mean Corpuscular Volume 101.3 fL (83.0-100.0); Mean Platelet Volume 9.6 fL (9.4-12.4); Monocytes # 0.6 K/mcL (0.0-1.3); Monocytes % 6.5 %; Neutrophils # 5.2 K/mcL (1.6-8.9); Platelet Count 567 K/mcL (140-400); Red Blood Count 2.97 M/mcL (3.82-4.97); Red Cell Distribution Width 17.7 % (11.5-14.5); Segmented Neutrophils % 58.9 %; White Blood Count 8.9 K/mcL (4.3-11.1)
[2021-06-02 09:45] LABS: % Iron Saturation 10 % (15-50); BUN/Creatinine Ratio 11 (6-26); Blood Urea Nitrogen 9 mg/dL (8-23); Carbon Dioxide 29 mEq/L (23-29); Chloride 108 mEq/L (98-107); Glucose 100 mg/dL (70-105); Iron 34 mcg/dL (50-170); Osmolality,Calculated 297 (280-300); Potassium 3.8 mEq/L (3.5-5.1); Sodium 144 mEq/L (136-145); Transferrin 247 mg/dL (203-362); eGFR For African Americans > 60 (> 60); eGFR For Non-African Americans > 60 (> 60)
[2021-06-02 10:00] LABS: Ferritin 25 ng/mL (10-120)
[2021-06-02 10:12] LABS: Folate > 22.3 ng/mL (3.0-16.0); Vitamin B12 454 pg/mL (250-1100)
[2021-06-02] MEDS: Metoprolol XL (24 HR) Succ 25 MG TAB.ER.24H PO SCH (10:43)
[2021-06-02] MEDS: *HR* OxyCODONE Oral Soln 5 MG/5 ML UD.LIQ PO PRN ×2 (11:00→20:34)
[2021-06-02] MEDS ORDERED: *HR* Heparin 5,000 UNIT/ML VIAL IVP PRN ×2 (16:24)
[2021-06-02] MEDS ORDERED: *HR* Heparin 5,000 UNIT/ML VIAL IVP ONE (16:24)
[2021-06-02] MEDS ORDERED: Cyanocobalamin (B-12) 1,000 MCG/ML VIAL SQ ONE (16:26)
[2021-06-02] MEDS ORDERED: Heparin 25,000UNIT/250ML 1/2NS 25,000 UNIT/250 ML IV.SOLN IVC SCH ×2 (16:30→16:54)
[2021-06-02] MEDS: Iron Sucrose Complex 250 MG in 0.9 % Sodium Chloride 250 ML IVPB SCH (17:55)
[2021-06-02] MEDS ORDERED: *HR* OxyCODONE Immed Rel 5 MG TABLET PO PRN (21:11)
[2021-06-03 01:57] LABS: Basophils % 0.4 %; Eosinophils # 0.7 K/mcL (0.0-0.6); Eosinophils % 8.9 %; Hematocrit 26.3 % (35.3-44.9); Immature Granulocytes % 0.4 % (0-4); Lymphocytes # 2.2 K/mcL (0.6-4.6); Lymphocytes % 28.9 %; Mean Corpuscular HGB Conc 29.3 g/dL (31.6-35.5); Mean Corpuscular Volume 102.3 fL (83.0-100.0); Mean Platelet Volume 9.7 fL (9.4-12.4); Monocytes # 0.6 K/mcL (0.0-1.3); Monocytes % 7.8 %; Neutrophils # 4.1 K/mcL (1.6-8.9); Platelet Count 445 K/mcL (140-400); Red Blood Count 2.57 M/mcL (3.82-4.97); Red Cell Distribution Width 17.5 % (11.5-14.5); Segmented Neutrophils % 53.6 %; White Blood Count 7.7 K/mcL (4.3-11.1)
[2021-06-03 01:59] LABS: Hemoglobin 7.7 g/dL (11.5-15.4)
[2021-06-03 02:17] LABS: BUN/Creatinine Ratio 12 (6-26); Blood Urea Nitrogen 10 mg/dL (8-23); Calcium 8.3 mg/dL (8.6-10.3); Carbon Dioxide 26 mEq/L (23-29); Chloride 108 mEq/L (98-107); Glucose 128 mg/dL (70-105); Osmolality,Calculated 289 (280-300); Potassium 3.2 mEq/L (3.5-5.1); Sodium 139 mEq/L (136-145); eGFR For African Americans > 60 (> 60); eGFR For Non-African Americans > 60 (> 60)
[2021-06-03] MEDS: Pantoprazole 40 MG VIAL IVP SCH ×2 (06:04→16:39)
[2021-06-03] MEDS: Insulin LISPRO 300 UNITS/3 ML VIAL SUBQ SCH ×4 (08:13→20:03)
[2021-06-03] MEDS: Metoprolol XL (24 HR) Succ 25 MG TAB.ER.24H PO SCH (08:14)
[2021-06-03] MEDS: *HR* OxyCODONE Immed Rel 5 MG TABLET PO PRN ×3 (08:21→23:56)
[2021-06-03] MEDS ORDERED: *HR* Methotrexate 2.5 MG TABLET PO SCH (09:00)
[2021-06-03] MEDS ORDERED: Lidocaine -MPF 2% 2 ML VIAL ONE (09:24)
[2021-06-03] MEDS ORDERED: *HR* Propofol 200 MG/20 ML VIAL IVP ONE (10:25)
[2021-06-03] MEDS ORDERED: 0.9 % Sodium Chloride 500 ML ONE (11:57)
[2021-06-03] MEDS: Ringers Solution, Lactated 1,000 ML IVC SCH (12:11)
[2021-06-03] MEDS: Folic Acid 1 MG TABLET PO SCH (12:26)
[2021-06-03] MEDS: diazePAM 5 MG TABLET PO SCH ×2 (12:26→20:17)
[2021-06-03] MEDS: Pregabalin 50 MG CAPSULE PO SCH ×2 (12:26→20:17)
[2021-06-03] MEDS: Magnesium Oxide 400 MG TABLET PO SCH (12:26)
[2021-06-03] MEDS: Aspirin Enteric Coated 81 MG Tablet PO SCH (12:26)
[2021-06-03] MEDS: Venlafaxine XR (24 HR) 150 MG CAP.ER.24H PO SCH (12:26)
[2021-06-03] MEDS: Cholecalciferol (D-3) 1,000 UNIT (25MCG) TABLET PO SCH (12:26)
[2021-06-03] MEDS: Iron Sucrose Complex 250 MG in 0.9 % Sodium Chloride 250 ML IVPB SCH (14:29)
[2021-06-03] MEDS: cefTRIAXone 1,000 MG in Water for inj. (sterile) 10 ML IVP SCH (17:07)
[2021-06-03 17:13] LABS: Hematocrit 31.1 % (35.3-44.9)
[2021-06-03 17:14] LABS: Hemoglobin 9.4 g/dL (11.5-15.4)
[2021-06-04 01:37] LABS: Basophils # 0.1 K/mcL (0.0-0.2); Basophils % 0.6 %; Eosinophils # 0.7 K/mcL (0.0-0.6); Hemoglobin 9.3 g/dL (11.5-15.4); Immature Granulocytes % 0.4 % (0-4); Lymphocytes # 2.4 K/mcL (0.6-4.6); Lymphocytes % 20.2 %; Mean Corpuscular Hemoglobin 30.5 pg (28.0-33.3); Mean Corpuscular Volume 101.6 fL (83.0-100.0); Mean Platelet Volume 9.5 fL (9.4-12.4); Monocytes # 0.8 K/mcL (0.0-1.3); Monocytes % 6.5 %; Neutrophils # 7.8 K/mcL (1.6-8.9); Platelet Count 422 K/mcL (140-400); Red Blood Count 3.05 M/mcL (3.82-4.97); Red Cell Distribution Width 17.3 % (11.5-14.5); Segmented Neutrophils % 66.3 %
[2021-06-04 01:40] LABS: White Blood Count 11.8 K/mcL (4.3-11.1)
[2021-06-04 01:49] LABS: BUN/Creatinine Ratio 9 (6-26); Blood Urea Nitrogen 7 mg/dL (8-23); Calcium 8.3 mg/dL (8.6-10.3); Carbon Dioxide 24 mEq/L (23-29); Chloride 107 mEq/L (98-107); Glucose 96 mg/dL (70-105); Osmolality,Calculated 290 (280-300); Potassium 3.5 mEq/L (3.5-5.1); Sodium 141 mEq/L (136-145); eGFR For African Americans > 60 (> 60); eGFR For Non-African Americans > 60 (> 60)
[2021-06-04] MEDS: Ringers Solution, Lactated 1,000 ML IVC SCH (04:24)
[2021-06-04] MEDS: Pantoprazole 40 MG VIAL IVP SCH ×2 (04:25→18:28)
[2021-06-04] MEDS: Insulin LISPRO 300 UNITS/3 ML VIAL SUBQ SCH ×4 (08:48→21:14)
[2021-06-04] MEDS ORDERED: CefTRIAXone 1,000 MG VIAL ONE (09:13)
[2021-06-04] MEDS: cefTRIAXone 1,000 MG in Water for inj. (sterile) 10 ML IVP SCH (09:18)
[2021-06-04] MEDS: Aspirin Enteric Coated 81 MG Tablet PO SCH (09:19)
[2021-06-04] MEDS: Magnesium Oxide 400 MG TABLET PO SCH (09:19)
[2021-06-04] MEDS: Cholecalciferol (D-3) 1,000 UNIT (25MCG) TABLET PO SCH (09:19)
[2021-06-04] MEDS: Folic Acid 1 MG TABLET PO SCH (09:20)
[2021-06-04] MEDS: Venlafaxine XR (24 HR) 150 MG CAP.ER.24H PO SCH (09:20)
[2021-06-04] MEDS: Metoprolol XL (24 HR) Succ 25 MG TAB.ER.24H PO SCH (09:30)
[2021-06-04] MEDS: Pregabalin 50 MG CAPSULE PO SCH ×2 (09:31→21:20)
[2021-06-04] MEDS: diazePAM 5 MG TABLET PO SCH ×2 (09:31→21:13)
[2021-06-04 10:07] LABS: Albumin 3.4 g/dL (3.5-5.7)
[2021-06-04] MEDS: Iron Sucrose Complex 250 MG in 0.9 % Sodium Chloride 250 ML IVPB SCH (10:33)
[2021-06-04 15:21] LABS: Hematocrit 31.8 % (35.3-44.9); Hemoglobin 9.8 g/dL (11.5-15.4)
[2021-06-05 00:09] LABS: Hematocrit 33.8 % (35.3-44.9); Hemoglobin 10.2 g/dL (11.5-15.4)
[2021-06-05] MEDS: *HR* OxyCODONE Immed Rel 5 MG TABLET PO PRN (01:08)
[2021-06-05 03:12] LABS: Basophils % 0.4 %; Eosinophils # 0.7 K/mcL (0.0-0.6); Eosinophils % 6.9 %; Hemoglobin 9.8 g/dL (11.5-15.4); Immature Granulocytes % 0.4 % (0-4); Lymphocytes # 2.1 K/mcL (0.6-4.6); Lymphocytes % 20.5 %; Mean Corpuscular HGB Conc 31.6 g/dL (31.6-35.5); Mean Corpuscular Hemoglobin 31.7 pg (28.0-33.3); Mean Corpuscular Volume 100.3 fL (83.0-100.0); Mean Platelet Volume 9.5 fL (9.4-12.4); Monocytes # 0.6 K/mcL (0.0-1.3); Monocytes % 5.3 %; Neutrophils # 6.9 K/mcL (1.6-8.9); Platelet Count 417 K/mcL (140-400); Red Blood Count 3.09 M/mcL (3.82-4.97); Red Cell Distribution Width 17.2 % (11.5-14.5); Segmented Neutrophils % 66.5 %; White Blood Count 10.4 K/mcL (4.3-11.1)
[2021-06-05 03:35] LABS: BUN/Creatinine Ratio 9 (6-26); Blood Urea Nitrogen 9 mg/dL (8-23); Calcium 8.6 mg/dL (8.6-10.3); Carbon Dioxide 26 mEq/L (23-29); Chloride 106 mEq/L (98-107); Glucose 116 mg/dL (70-105); Osmolality,Calculated 292 (280-300); Potassium 3.2 mEq/L (3.5-5.1); Sodium 141 mEq/L (136-145); eGFR For African Americans > 60 (> 60); eGFR For Non-African Americans 56 (> 60)
[2021-06-05] MEDS: Pantoprazole 40 MG VIAL IVP SCH (06:30)
[2021-06-05 08:17] VITALS: BP 102/66
[2021-06-05] MEDS: Magnesium Oxide 400 MG TABLET PO SCH (09:09)
[2021-06-05] MEDS: diazePAM 5 MG TABLET PO SCH (09:09)
[2021-06-05] MEDS: Aspirin Enteric Coated 81 MG Tablet PO SCH (09:09)
[2021-06-05] MEDS: Folic Acid 1 MG TABLET PO SCH (09:09)
[2021-06-05] MEDS: cefTRIAXone 1,000 MG in Water for inj. (sterile) 10 ML IVP SCH (09:10)
[2021-06-05] MEDS: Metoprolol XL (24 HR) Succ 25 MG TAB.ER.24H PO SCH (09:10)
[2021-06-05] MEDS: Venlafaxine XR (24 HR) 150 MG CAP.ER.24H PO SCH (09:10)
[2021-06-05] MEDS: Cholecalciferol (D-3) 1,000 UNIT (25MCG) TABLET PO SCH (09:10)
[2021-06-05] MEDS: Insulin LISPRO 300 UNITS/3 ML VIAL SUBQ SCH (10:57)
== END 2021-06-05 15:31 | disposition home or self-care (01) | DRG 378 ==
LOC: EMEROOARM 12:46 → 3BNU 12:46 → SUATTDRO 16:48 → 3BNU 17:30
PROVIDERS: ADMIT Internal Medicine; ATTEND Student in an Organized Health Care Education/Training Program